=== PATIENT | male | born 1970 | race Caucasian/White ===

== ENCOUNTER 2019-08-30 02:12 | Day surgery (SDC) | payer MEDICARE, OTHER, SELFPAY ==
[2019-08-23 13:45] VITALS: BMI 33.5
[2019-08-30 09:00] VITALS: BP 135/87; PULSE 83; RESP 20; TEMP 36.7; O2SAT 97; BMI 33.3
--- NOTE | 2019-08-30 09:43 | P.PNAN_ITS ---
Anes - Initial Pre Proc Eval Procedure: Operation Date: 08/30/19 10:30 Proposed Procedures p Esophagogastroduodenoscopy - Denzel Garcia MD Date/Time: 08/30/19 09:43 Surgeon: Denzel Garcia MD Pre Op Diagnosis: GERD Patient Data Age: 49 Gender: M Height: 1.75 m Weight: 102.4 kg Last Vital Signs Temp 36.7 C 08/30/19 09:00 Pulse 83 08/30/19 09:00 Resp 20 08/30/19 09:00 BP 135/87 08/30/19 09:00 Pulse Ox 97 08/30/19 09:00 Allergies Allergy/AdvReac Type Severity Reaction Status Date / Time Sulfa (Sulfonamide Allergy Unknown Verified 08/30/19 09:34 Antibiotics) Penicillins Allergy Verified 08/30/19 09:34 CEFUROXIME AXETIL Allergy Uncoded 08/30/19 09:34 Home Medications Medication Instructions Recorded Confirmed Type aspirin [Adult Low Dose Aspirin] 81 mg DAILY 08/23/19 08/30/19 History irbesartan 150 mg DAILY 08/23/19 08/30/19 History lorazepam 0.5 mg DAILY PRN 08/23/19 08/30/19 History omeprazole 20 mg PO DAILY 08/23/19 08/30/19 History rosuvastatin 10 mg DAILY 08/23/19 08/30/19 History venlafaxine 75 mg DAILY 08/23/19 08/30/19 History Patient hx anesthesia problems: none Family hx anesthesia problems: none [facility] Past Medical History Medical History (Updated 08/30/19 @ 09:44 by Freddie Turner MD) Anxiety Arthritis Gastroesophageal reflux disease HTN (hypertension) Hypercholesterolemia Obesity Anes - Eval Final PreProcedure Day of Procedure 08/30/19 09:43 Patient weight: obese Heart: regular rate and rhythm Lungs: clear to auscultation and normal air movement Airway: Mallampati scale class II Neurological: alert and oriented Last oral intake: >/= 8 hours ASA classification: III Emergent: no Anesthetic plan: proceed Anesthesia type and monitoring: general GIVS Informed Consent: The patient's anesthetic plan and its attendant risks and benefits were discussed with the patient/family/POA. Questions were solicited and answers provided to the satisfaction of the patient/family/POA.
[2019-08-30] MEDS: LACTATED RINGERS 1,000 ML 150 ML IV CONT (09:51)
--- NOTE | 2019-08-30 10:11 | P.HP_ITS ---
History of Present Illness History of Present Illness Consent: Risks, benefits, and alternatives have been discussed and questions answered. Patient agrees to proceed with procedure. Chief complaint: GERD Narrative: Lei Arreaga is a 49 year old male with a long history of acid reflux. He notices burning in his chest or fullness if he skips a dose of medication. Occasionally he will have a tickle in his throat or reason voice may change. He has been treated by an shell coremaker for allergies. He denies dysphagia PMFSH Past Medical History Medical History Anxiety Arthritis Gastroesophageal reflux disease HTN (hypertension) Hypercholesterolemia Obesity Meds Home Medications and Allergies Home Medications Medication Instructions Recorded Confirmed Type aspirin [Adult Low Dose Aspirin] 81 mg DAILY 08/23/19 08/30/19 History irbesartan 150 mg DAILY 08/23/19 08/30/19 History lorazepam 0.5 mg DAILY PRN 08/23/19 08/30/19 History omeprazole 20 mg PO DAILY 08/23/19 08/30/19 History rosuvastatin 10 mg DAILY 08/23/19 08/30/19 History venlafaxine 75 mg DAILY 08/23/19 08/30/19 History Allergies Allergy/AdvReac Type Severity Reaction Status Date / Time Sulfa (Sulfonamide Allergy Unknown Verified 08/30/19 09:34 Antibiotics) Penicillins Allergy Verified 08/30/19 09:34 CEFUROXIME AXETIL Allergy Uncoded 08/30/19 09:34 Vital Signs Vital Signs - 24 hr 08/30/19 09:00 Temperature 36.7 C Pulse Rate 83 Respiratory Rate 20 Blood Pressure 135/87 Pulse Oximetry 97 Exam Const: General: alert Orientation/consciousness: patient oriented x3 Resp: Auscultation: clear to auscultation bilaterally Cardio: Rhythm: regular rhythm GI: GI Palp: Yes Soft to palpation and No Tenderness to palpation present (GI) Neuro: General: patient oriented x3 Assessment and Plan Assessment and plan (1) Gastroesophageal reflux disease: Code(s): K21.9 - Gastro-esophageal reflux disease without esophagitis Status: Acute Assessment and Plan: EGD with possible biopsy or dilatation or cautery.
[2019-08-30 10:35] VITALS: BP 112/72; PULSE 79; RESP 13; O2SAT 96
[2019-08-30 10:45] VITALS: BP 122/77; PULSE 78; RESP 18; O2SAT 97
[2019-08-30 10:48] VITALS: BP 121/78; PULSE 67; RESP 13; O2SAT 98
== END 2019-08-30 11:07 | disposition home or self-care (01) ==
PROVIDERS: PCP Emergency Medicine; Visit Provider Internal Medicine Gastroenterology
PROC: 0DJ08ZZ Inspection of Upper Intestinal Tract, Via Natural or Artificial Opening Endoscopic (ICD-10-PCS; CPT 43235; principal; 2019-08-30 10:30)
DX: K21.9 Gastro-esophageal reflux disease without esophagitis (principal); K44.9 Diaphragmatic hernia without obstruction or gangrene; I10 Essential (primary) hypertension; E78.00 Pure hypercholesterolemia, unspecified; M19.90 Unspecified osteoarthritis, unspecified site; F41.9 Anxiety disorder, unspecified; E66.9 Obesity, unspecified; Z68.33 Body mass index [BMI] 33.0-33.9, adult; Z79.82 Long term (current) use of aspirin
CPT/HCPCS: 43239; 88305; 88313; 88342; J2704; J7120

== ENCOUNTER 2020-05-21 14:35 | Emergency (ER) | payer MEDICARE, OTHER, SELFPAY ==
[2020-05-21 14:40] VITALS: BP 150/87; PULSE 98; RESP 16; TEMP 36.3; O2SAT 100
[2020-05-21 14:44] VITALS: BP 150/87; PULSE 98; RESP 16; TEMP 36.3; O2SAT 100
--- NOTE | 2020-05-21 14:45 | ED.GENADULT ---
HPI - General Adult General Chief complaint: Ear Stated complaint: ear pain Time Seen by Provider: 05/21/20 14:45 Source: patient and RN notes reviewed Mode of arrival: ambulatory Limitations: no limitations History of Present Illness HPI narrative: 50-year-old male presents with complains of LT otalgia, tinnitus, clogged sensation, and decrease hearing for the past 10 day. [place] and Coricidin without relief. No drainage or trauma. No facial swelling. No rhinorrhea or nasal congestion. No high fevers,drooling, neck or throat swelling. No chest pain or shortness of breath. Denies dizziness, nausea, vomiting, and abdominal pain. Tolerating liquids well. The patient reports he have not been diagnosed with COVID-19. The patient reports he is not waiting for the results of a COVID-19 lab test. The patient reports he do not have chills, weakness, or fatigue. The patient reports he do not have a new or worsening cough or shortness of breath. The patient reports he do not have any loss of taste, sore throat, or diarrhea. Denies recent traveling. Denies concerns for COVID-19 or exposures been home with limited outdoor exposure except for essential household needs and return home. At this time, patient is not suspected of having COVID-19. Some parts of this dictation were generated by voice recognition software and may contain typographical and/or grammatical inaccuracies. Related Data Home Medications Medication Instructions Recorded Confirmed aspirin [Adult Low Dose Aspirin] 81 mg DAILY 08/23/19 08/30/19 irbesartan 150 mg DAILY 08/23/19 08/30/19 lorazepam 0.5 mg DAILY PRN 08/23/19 08/30/19 omeprazole 20 mg PO DAILY 08/23/19 08/30/19 rosuvastatin 10 mg DAILY 08/23/19 08/30/19 venlafaxine 75 mg DAILY 08/23/19 08/30/19 metformin mg 05/21/20 Allergies Allergy/AdvReac Type Severity Reaction Status Date / Time Sulfa (Sulfonamide Allergy Unknown Verified 08/30/19 09:34 Antibiotics) Penicillins Allergy Verified 08/30/19 09:34 CEFUROXIME AXETIL Allergy Uncoded 08/30/19 09:34 Review of Systems Review of Systems: Narrative: CONSTITUTIONAL: Denies fever, chills, sweats. EYES: Denies visual changes, redness, discharge. ENT: Denies sore throat, rhinorrhea, congestion, drainage. Complains of LT otalgia, tinnitus, clogged sensation, and decrease hearing CARDIOVASCULAR: Denies chest pain, palpitations, edema. RESPIRATORY: Denies dyspnea, wheezing, cough. GASTROINTESTINAL: Denies abdominal pain, nausea, vomiting, diarrhea. GENITOURINARY: Denies dysuria, hematuria, abnormal discharge. SKIN: Denies rash or itching. MUSCULOSKELETAL: Denies acute back pain, joint pain, or myalgia. NEUROLOGIC: Denies numbness or focal weakness. PSYCHIATRIC: Denies anxiety or depression. All systems reviewed & are unremarkable except as noted in HPI and below. REPLACED BY [facility] Past Medical History Medical History (Updated 05/22/20 @ 00:00 by Andrzej Cordova) Anxiety Arthritis Femoral-popliteal bypass graft occlusion, right Gastroesophageal reflux disease Hernia History of femoral angiogram X2 HTN (hypertension) Hypercholesterolemia Obesity Surgical History Surgical History (Updated 05/21/20 @ 15:00 by YASH Peace) History of vasectomy Family History Family History (Updated 05/21/20 @ 15:01 by YASH Peace) Father Hypertension Mother Hypertension Diabetes mellitus Social History Social History (Updated 05/21/20 @ 15:02 by YSAH Peace) Smoking status: Never smoker Tobacco type: cigarettes Second hand tobacco smoke exposure: No Alcohol intake: current Alcohol use details: krissy Substance use: never Living arrangements: with family Additional occupation/education comments: Disable Comments At time of signature, agree with nurse past medical, surgical, social, and family history. There is no relevant family history pertinent to the presenting complaint
== END 2020-05-21 15:09 | disposition home or self-care (01) ==
PROVIDERS: Emergency Provider Nurse Practitioner Family; PCP Emergency Medicine
DX: H65.02 Acute serous otitis media, left ear (principal); M19.90 Unspecified osteoarthritis, unspecified site; K21.9 Gastro-esophageal reflux disease without esophagitis; I10 Essential (primary) hypertension; E78.00 Pure hypercholesterolemia, unspecified; E66.9 Obesity, unspecified; Z68.35 Body mass index [BMI] 35.0-35.9, adult; Z98.52 Vasectomy status; F41.9 Anxiety disorder, unspecified; Z95.820 Peripheral vascular angioplasty status with implants and grafts
CPT/HCPCS: 99213; G0463

== ENCOUNTER → 2021-07-01 09:00 | Outpatient (CLI) | payer MEDICARE, OTHER, SELFPAY ==
--- NOTE | ~2021-07-01 | MMUS_ITS ---
EXAMINATION: MM diagnostic mammo unilat RT, US breast RT limited HISTORY: Palpable right breast abnormality TECHNIQUE: Additional 3-D tomosynthesis images of the right breast were performed and synthetic 2-D i mages were generated. CAD analysis was submitted and interpreted. High resolution breast ultrasound w as performed. COMPARISON: No prior studies for comparison. BREAST PARENCHYMAL COMPOSITION: Breast composition is almost entirely fatty. FINDINGS: MAMMOGRAPHIC FINDINGS: There is bilateral gynecomastia. No suspicious masses, calcifications or architectural distortion in either breast to suggest malignancy. ULTRASOUND: Limited left breast ultrasound: Normal heterogeneous echotexture without focal solid or cystic mass. IMPRESSION: 1. No evidence for malignancy in the right breast. Gynecomastia. 2. Recommend follow-up clinical management for gynecomastia. BI-RADS Category 2: Benign finding(s). Reviewed, dictated and finalized at location A. [facility] IMPRESSION: 1. No evidence for malignancy in the right breast. Gynecomastia. 2. Recommend follow-up clinical management for gynecomastia. BI-RADS Category 2: Benign finding(s).
== END ==
PROVIDERS: PCP Emergency Medicine; Visit Provider Emergency Medicine
DX: N63.10 Unspecified lump in the right breast, unspecified quadrant (principal); R92.2 Inconclusive mammogram
CPT/HCPCS: 76642; 77065